=== PATIENT | female | born 1945 | race Caucasian/White ===

== ENCOUNTER 2018-10-23 17:10 | Emergency (ER) | payer OTHER, MEDICAID ==
[~2018-10-23] VITALS: Ht 152.4 cm; Wt 57.6 kg
[2018-10-23 17:41] VITALS: Ht 152.4 cm; Wt 57.6 kg
[2018-10-23 21:24] VITALS: BP 136/68
== END 2018-10-23 21:24 | disposition home or self-care (01) ==
LOC: ED 17:10
DX: I10 Essential (primary) hypertension (principal); E11.9 Type 2 diabetes mellitus without complications; Z90.49 Acquired absence of other specified parts of digestive tract; Z90.710 Acquired absence of both cervix and uterus

== ENCOUNTER 2018-10-25 21:47 | Emergency (ER) | payer OTHER, MEDICAID ==
[~2018-10-25] VITALS: Ht 165.1 cm; Wt 57.6 kg
[2018-10-25 22:03] VITALS: Ht 165.1 cm; Wt 57.6 kg
[2018-10-25 23:32] VITALS: BP 152/86
== END 2018-10-25 23:32 | disposition home or self-care (01) ==
LOC: ED 21:47
DX: I10 Essential (primary) hypertension (principal); E11.9 Type 2 diabetes mellitus without complications; Z90.49 Acquired absence of other specified parts of digestive tract; Z90.710 Acquired absence of both cervix and uterus